=== PATIENT | female | born 1965 | race Caucasian/White ===

== ENCOUNTER 2017-01-03 08:25 | Observation (INO) | payer OTHER ==
[~2017-01-03] VITALS: Ht 170.2 cm; Wt 79.5 kg
[~2017-01-03 08:25] MED LIST: ASPI81TA50 PO; LEVO100T5 PO; LIOT5TAB3 PO; METH20TA PO; MOME220A9 INH; MONT10TA6 PO; OMEP20CA9 PO; TRIA1CAP3 PO
[2017-01-03 09:21] VITALS: BP 110/76
[2017-01-03] MEDS ORDERED: POTA20TA6 PO (09:34)
[2017-01-03] MEDS ORDERED: ALLERGY MEDICATION PO (09:34)
[2017-01-03] MEDS ORDERED: CYCL-259 PO (09:34)
[2017-01-03] MEDS ORDERED: IBUP200T64 PO (09:34)
[2017-01-03 09:40] VITALS: BP 110/76
[2017-01-03] MEDS: LACTATED RINGERS 1,000 ML IV SCH ×2 (09:52→17:40)
[2017-01-03 10:09] LABS: HEMOGLOBIN 16.1 g/dL (11.7-16.4); WHITE BLOOD COUNT 8.4 x10^3/uL (3.4-10)
[2017-01-03 10:13] LABS: PATH.CAST-FLAG NOT PRESENT; SPERM-FLAG NOT PRESENT; SRC-FLAG NOT PRESENT; XTAL-FLAG NOT PRESENT; YLC-FLAG NOT PRESENT
[2017-01-03] MEDS ORDERED: REMIFENTANIL 2 MG ONE (10:15)
[2017-01-03] MEDS ORDERED: FENTANYL PF 100 MCG/2ML ONE ×3 (10:15→14:53)
[2017-01-03] MEDS ORDERED: MIDAZOLAM 1 MG/ML, 2ML ONE (10:16)
[2017-01-03 10:21] LABS: BLOOD UREA NITROGEN 14 mg/dL (7-18)
[2017-01-03] MEDS ORDERED: VANCOMYCIN 1,000 MG ONE (10:53)
[2017-01-03] MEDS ORDERED: TRANEXAMIC ACID 100 MG/ML, 10ML ONE (10:54)
[2017-01-03] MEDS ORDERED: EPINEPHRINE 1 MG/ML, 1ML ONE (10:54)
[2017-01-03] MEDS ORDERED: BUPIVACAINE/PF 0.5% ONE (10:54)
[2017-01-03] MEDS ORDERED: LIDOCAINE/MPF 2%-EPI 1:200K, 20 ML ONE (10:54)
[2017-01-03] MEDS ORDERED: BACITRACIN 50,000 UNIT ONE (10:55)
[2017-01-03] MEDS ORDERED: THROMBIN 5,000 UNIT VIAL TP ONE (10:55)
[2017-01-03] MEDS ORDERED: ONDANSETRON 2MG/ML, 2ML ONE (11:05)
[2017-01-03] MEDS ORDERED: PROPOFOL 10 MG/ML, 50ML ONE (11:05)
[2017-01-03] MEDS ORDERED: DEXAMETHASONE 4 MG/ML, 5ML ONE (11:05)
[2017-01-03] MEDS ORDERED: CLINDAMYCIN 150 MG/ML, 6ML ONE (11:43)
[2017-01-03] MEDS ORDERED: LIDOCAINE 2%-EPI 1:100K, 20ML INFIL ONE (12:05)
[2017-01-03] MEDS ORDERED: EPHEDRINE 50 MG/ML, 1ML IVPush PRN (13:30)
[2017-01-03] MEDS ORDERED: hydrALAzine 20 MG/ML, 1ML IV PRN (13:30)
[2017-01-03] MEDS ORDERED: METOPROLOL 1 MG/ML, 5ML IV PRN (13:30)
[2017-01-03] MEDS ORDERED: ALBUTEROL SULFATE 2.5 MG/3 ML NPPB PRN (13:30)
[2017-01-03] MEDS ORDERED: LABETALOL 5MG/ML, 20ML IV PRN (13:30)
[2017-01-03] MEDS ORDERED: PROMETHAZINE 25 MG/ML, 1ML IV PRN (13:30)
[2017-01-03] MEDS ORDERED: MIDAZOLAM 1 MG/ML, 2ML IV PRN (13:30)
[2017-01-03] MEDS ORDERED: ONDANSETRON 2MG/ML, 2ML IVPush PRN (13:30)
[2017-01-03] MEDS ORDERED: OXYcodone 5 MG/5 ML ORAL.SOL UDC PO PRN (13:30)
[2017-01-03] MEDS ORDERED: ACETAMINOPHEN 325 MG TABLET PO PRN (13:30)
[2017-01-03] MEDS ORDERED: HYDROmorphone 1 MG/ML, 1ML IV PRN (13:30)
[2017-01-03] MEDS ORDERED: MEPERIDINE/PF 25MG/0.5ML IVPush PRN (13:30)
[2017-01-03] MEDS ORDERED: HYDROcodone/APAP 7.5-325MG/15ML UDC PO PRN (13:30)
[2017-01-03] MEDS ORDERED: OXYcodone 5 MG/5 ML ORAL.SOL UDC ONE (14:53)
[2017-01-03] MEDS ORDERED: ACETAMINOPHEN 650 MG/20.3 ML UDC ONE (14:53)
[2017-01-03] MEDS ORDERED: morphine SULFATE/PF 0.5 MG/ML, 10ML IV PRN (15:00)
[2017-01-03] MEDS: FENTANYL PF 100 MCG/2ML IV PRN ×3 (15:01→15:22)
[2017-01-03] MEDS: ONDANSETRON 2MG/ML, 2ML IVPush PRN ×2 (16:41→20:45)
[2017-01-03] MEDS ORDERED: MORPHINE SULFATE 4 MG/ML, 1ML ONE (16:50)
[2017-01-03] MEDS: PROMETHAZINE 25 MG/ML, 1ML IM PRN ×2 (17:13→22:48)
[2017-01-03] MEDS ORDERED: MORPHINE SULFATE 4 MG/ML, 1ML IVPush PRN (17:30)
[2017-01-03] MEDS: CLINDAMYCIN PMX 300MG/50ML 50 ML IV SCH (17:39)
[2017-01-03 18:39] VITALS: BP 114/74
[2017-01-03] MEDS: METHYLPHENIDATE HCL 20 MG HOMEMEDPO SCH (21:00)
[2017-01-03] MEDS: OMEPRAZOLE 20 MG CAPSULE.DR PO SCH (21:27)
[2017-01-03] MEDS: LIOTHYRONINE 5 MCG TABLET PO SCH (21:27)
[2017-01-04] VITALS: BP 114/75
[2017-01-04] MEDS: CLINDAMYCIN PMX 300MG/50ML 50 ML IV SCH ×3 (01:18→12:00)
[2017-01-04 04:00] VITALS: BP 111/72
[2017-01-04] MEDS ORDERED: PROCHLORPERAZINE 5 MG/ML, 2ML IV ONE (07:00)
[2017-01-04 07:21] VITALS: BP 111/74
[2017-01-04] MEDS: METHYLPHENIDATE HCL 20 MG HOMEMEDPO SCH (09:00)
[2017-01-04] MEDS ORDERED: CYCLOBENZAPRINE 10 MG TABLET PO SCH (09:00)
[2017-01-04] MEDS ORDERED: POTASSIUM CHLORIDE 20 MEQ TAB.ER.PRT PO SCH (09:00)
[2017-01-04] MEDS: LIOTHYRONINE 5 MCG TABLET PO SCH (09:00)
[2017-01-04] MEDS ORDERED: LEVOTHYROXINE 100 MCG TABLET PO SCH (09:00)
[2017-01-04] MEDS: OMEPRAZOLE 20 MG CAPSULE.DR PO SCH (09:00)
[2017-01-04] MEDS ORDERED: TRIAMTERENE-HCTZ 37.5/25 MG TABLET PO SCH (09:00)
[2017-01-04 12:35] VITALS: BP 110/71
== END 2017-01-04 14:35 | disposition home or self-care (01) ==
LOC: INTOOBSV 08:25 → ORIP 08:25 → 4NOR 16:05
PROVIDERS: ADMIT Orthopaedic Surgery Orthopaedic Surgery of the Spine; ATTEND Orthopaedic Surgery Orthopaedic Surgery of the Spine
DX: M50.322 Other cervical disc degeneration at C5-C6 level (principal); M50.323 Other cervical disc degeneration at C6-C7 level; M48.02 Spinal stenosis, cervical region; R53.1 Weakness
CPT/HCPCS: 20931; 20936; 22551; 22552; 22853; 36415; 71010; 72040; 80048; 81001; 85025; 86850; 86900; 93005; 96365; 96372; 96375; 96376; C1713; C1762; G0378; J0171; J0780; J1100; J2250; J2405; J2550; J2704; J3010; J3490; J7120; J3370